=== PATIENT | male | born 1960 | race Caucasian/White ===

== ENCOUNTER 2018-02-07 06:58 | Day surgery (SDC) | payer MEDICARE, MEDICAID ==
[~2018-02-07] VITALS: Ht 193 cm; Wt 104.5 kg
[~2018-02-07 06:58] MED LIST: DILT120C88 PO; GLIM1TAB46 PO; LOVA40TA76 PO; METF500T7 PO; OLME1TAB22 PO; TRIA1CAP PO
[2018-02-07 07:11] VITALS: BP 158/88
[2018-02-07] MEDS ORDERED: TRIA1CAP2 PO (07:31)
[2018-02-07] MEDS ORDERED: AMLO5TAB PO (07:32)
[2018-02-07] MEDS ORDERED: LISI10TA4 PO (07:32)
[2018-02-07] MEDS ORDERED: GABA-532 PO (07:33)
[2018-02-07] MEDS ORDERED: VITAMIN D IM (07:35)
[2018-02-07] MEDS ORDERED: DILT120C51 PO (07:35)
[2018-02-07] MEDS ORDERED: ASPI81TA46 PO (07:36)
[2018-02-07] MEDS ORDERED: fentaNYL/PF 50MCG/1 ML 2ML syringe ONE (07:36)
[2018-02-07] MEDS ORDERED: MIDAZolam 5mg/5ml vial ONE (07:37)
[2018-02-07 08:52] VITALS: BP 143/72
[2018-02-07 09:02] VITALS: BP 141/74
[2018-02-07 09:12] VITALS: BP 144/70
== END 2018-02-07 09:35 | disposition home or self-care (01) ==
LOC: GI LAB 06:58
PROVIDERS: ATTEND Internal Medicine Gastroenterology
DX: Z09 Encounter for follow-up examination after completed treatment for conditions other than malignant neoplasm (principal); D12.5 Benign neoplasm of sigmoid colon; K57.30 Diverticulosis of large intestine without perforation or abscess without bleeding; K64.8 Other hemorrhoids; E78.5 Hyperlipidemia, unspecified; I12.9 Hypertensive chronic kidney disease with stage 1 through stage 4 chronic kidney disease, or unspecified chronic kidney disease; E11.22 Type 2 diabetes mellitus with diabetic chronic kidney disease; N18.3 Chronic kidney disease, stage 3 (moderate); Z86.010 Personal history of colon polyps; Z79.82 Long term (current) use of aspirin; Z79.84 Long term (current) use of oral hypoglycemic drugs; Z79.891 Long term (current) use of opiate analgesic; Z91.018 Allergy to other foods; Z86.73 Personal history of transient ischemic attack (TIA), and cerebral infarction without residual deficits; Z98.52 Vasectomy status; Z98.890 Other specified postprocedural states; Z79.899 Other long term (current) drug therapy
CPT/HCPCS: 45380; G0500; J2250; J3010; J7030; A4620

== ENCOUNTER 2020-01-28 21:24 | Inpatient (IN) | payer MEDICARE, MEDICAID ==
[~2020-01-28] VITALS: Ht 188 cm; Wt 97.0 kg
[~2020-01-28 21:24] MED LIST changes: +AMA1T PO; +AMLO5TAB PO; +ASPI81TA44 PO; +DILT120C51 PO; -DILT120C88 PO; +GABA-532 PO; -GLIM1TAB46 PO; +LISI10TA4 PO; +METF-900 PO; -METF500T7 PO; -OLME1TAB22 PO; -TRIA1CAP PO; +TRIA1CAP2 PO; +VITAMIN D IM
[2020-01-28 22:45] LABS: BASOPHILS # (AUTO) 0.1 X10'3 (0-0.2); BASOPHILS % (AUTO) 1.1 % (0-1); EOSINOPHILS # (AUTO) 0.2 X10'3 (0-0.9); EOSINOPHILS % (AUTO) 2.3 % (0-6); HEMOGLOBIN 12.1 g/dl (14.0-17.9); LYMPHOCYTES # (AUTO) 2.1 X10'3 (1.1-4.8); LYMPHOCYTES % (AUTO) 19.5 % (21-51); MEAN CORPUSCULAR HEMOGLOBIN 31.4 PG (27.0-31.0); MEAN CORPUSCULAR HGB CONC 33.7 g/dL (33.0-36.5); MEAN CORPUSCULAR VOLUME 93.2 FL (78-98); MEAN PLATELET VOLUME 7.4 FL (7.4-10.4); MONOCYTES # (AUTO) 1.1 X10'3 (0-0.9); MONOCYTES % (AUTO) 10.3 % (2-12); NEUTROPHILS # (AUTO) 7.1 X10'3 (1.8-7.7); NEUTROPHILS % (AUTO) 66.8 % (42-75); PLATELET COUNT 305 X10'3 (140-440); RED BLOOD COUNT 3.86 X10'6 (4.70-6.10); RED CELL DISTRIBUTION WIDTH 12.9 % (11.5-14.5); WHITE BLOOD COUNT 10.7 X10'3 (4.5-11.0)
[2020-01-28 22:52] LABS: PARTIAL THROMBOPLASTIN TIME 26 SECONDS (22-32)
[2020-01-28 22:54] LABS: CLARITY,URINE CLEAR (Clear); COLOR,URINE YELLOW (Yellow); GLUCOSE, URINE NEGATIVE (Neg); KETONES,URINE NEGATIVE (Neg); LEUKOCYTE ESTERASE ,URINE NEGATIVE (Neg); NITRITES, URINE NEGATIVE (Neg); OCCULT BLOOD,URINE TRACE-INTACT (Neg); PH,URINE 5.5 (4.8-8.0); PROTEIN,URINE 30 mg/dl (Neg); UROBILINOGEN,URINE 0.2 E.U/dL (0.2-1.0)
[2020-01-28 22:58] LABS: ALANINE AMINOTRANSFERASE 13 U/L (12-78); ALBUMIN 3.6 G/DL (3.4-5.0); ALKALINE PHOSPHATASE 92 IU/L (46-116); ANION GAP 10 (8-16); ASPARTATE AMINO TRANSFERASE 17 U/L (10-37); BILIRUBIN,TOTAL 0.5 MG/DL (0.1-1.0); BLOOD UREA NITROGEN 40 MG/DL (7-18); BUN/CREATININE RATIO 15.7 (5.4-32.0); CHLORIDE 102 MMOL/L (99-107); CREATININE 2.54 MG/DL (0.60-1.10); ETHANOL < 0.010 GM/DL (0.0-0.010); GLUCOSE 118 MG/DL (70-104); POTASSIUM 3.1 MMOL/L (3.5-5.1); SODIUM 139 MMOL/L (135-145); TOTAL CARBON DIOXIDE 27.5 MMOL/L (24-32); TOTAL PROTEIN 7.2 G/DL (6.4-8.2); eGFR 26 ML/MIN
[2020-01-28 23:00] LABS: UA COLLECTION TYPE URINAL
[2020-01-28 23:01] LABS: BACTERIA,URINE NONE SEEN /HPF (Neg); RBC,URINE 0-2 /HPF (0-2); SQUAMOUS EPITHELIAL CELL,UR FEW /LPF (FEW); WBC,URINE NONE SEEN /HPF (0-4)
[2020-01-28] MEDS ORDERED: normal saline 1000ML IV soln IVB ONE (23:15)
[2020-01-28 23:25] LABS: URINE AMPHETAMINE SCREEN NEGATIVE (Neg); URINE BARBITUATE SCREEN NEGATIVE (Neg); URINE BENZODIAZEPINES SCREEN NEGATIVE (Neg); URINE CANNABINOID SCREEN NEGATIVE (Neg); URINE COCAINE SCREEN NEGATIVE (Neg); URINE METHADONE SCREEN NEGATIVE (Neg); URINE OPIATE SCREEN NEGATIVE (Neg); URINE PHENCYCLIDINE SCREEN NEGATIVE (Neg)
[2020-01-28] MEDS ORDERED: potassium Cl 20 mEq SR tablet PO ONE (23:40)
[2020-01-29] MEDS ORDERED: MESSAGE TO PHARMACY PO ONE (01:25)
[2020-01-29] MEDS ORDERED: potassium Cl 20 mEq SR tablet PO PRN (01:25)
[2020-01-29] MEDS ORDERED: potassium CL 10mEq/100ml bag 100 ML IV PRN ×2 (01:25)
[2020-01-29] MEDS ORDERED: magnesium hydroxide 30ml (MOM) UD suspension PO PRN (01:25)
[2020-01-29] MEDS ORDERED: glucagon, human recombinant 1mg kit SUBCUT PRN (01:25)
[2020-01-29] MEDS ORDERED: dextrose ORAL solution 15 GM/59 ML bottle PO PRN ×2 (01:25)
[2020-01-29] MEDS ORDERED: mag hydrox/Alum hydrox/simeth 30ml oral suspension PO PRN (01:25)
[2020-01-29] MEDS ORDERED: insulin Lispro (HumaLOG) vial - multi-dose SQ SCH (01:25)
[2020-01-29] MEDS ORDERED: acetaminophen 325mg tablet PO PRN (01:25)
[2020-01-29] MEDS ORDERED: ondansetron/PF 4mg/2ml inj IV PRN (01:25)
[2020-01-29] MEDS ORDERED: dextrose 50%-water 50ml dispensing syringe IV PRN ×2 (01:25)
[2020-01-29] MEDS: normal saline 1000ml 1,000 ML IV SCH ×3 (01:50→21:21)
--- NOTE | 2020-01-29 02:58 | NUR ---
Patient in room ED 9. I have received report from RAVINDER Bhatt RN, and had the opportunity to ask questions and assume patient care. Pt. to room 347B Addendum: 01/29/20 at 0259 by Italia Odell RN Amended: Links added.
[2020-01-29 03:38] VITALS: BP 151/81
--- NOTE | 2020-01-29 03:50 | NUR ---
pt arrived to floor via gurney. pt. confused. unable to answer questions appropriately. Pt. laughs when asked questions. will continue to monitor.
[2020-01-29] MEDS ORDERED: cyanocobalamin 1,000 mcg/ml inj IM ONE (06:00)
--- NOTE | 2020-01-29 06:13 | NUR ---
Problems reprioritized. Patient report given, questions answered & plan of care reviewed with BARNEY Miguel. Addendum: 01/29/20 at 0613 by Italia Odell RN Amended: Links added.
--- NOTE | 2020-01-29 06:15 | NUR ---
Patient in room [facility] 347. I have received report from Italia CORLEY and had the opportunity to ask questions and assume patient care.
--- NOTE | 2020-01-29 06:59 | NUR ---
Blood sugar was 46mg/dl when checked, the glucometer machine showing V number that is correct and has little box that has message of "downtime override". Patient alert, confused, irritable, and stated being hungry. Blood sugar recheck was 42 mg/dl. I called the lab about the downtime override message from the glucometer and that patient is hypoglycemic - I was told that the message of downtime override will not affect the result of capillary glucose. I was advised to order a blood draw for serum glucose and to initiate treatment for hypoglycemia. Patient stated that he could not have orange juice as he is allergic to it. Patient yelled at me and said "if you give me orange juice you can kill me!" I was going to give patient glucose shot per hypoglycemia protocol but the label has image of orange. Due to patient allergic reaction to citrus/orange juice in the past as patient reported, I administered [id number] slow IV push to patient for the severe hypoglycemia. Kitchen/dietary department notified via fax that patient cannot have orange or orange juice in his tray due to allergy.
[2020-01-29 07:00] VITALS: BP 159/84
--- NOTE | 2020-01-29 07:49 | NUR ---
Repeat blood sugar was 186 mg/dl.
[2020-01-29] MEDS: heparin, porcine 5000 units/ml vial SQ SCH ×2 (08:00→20:00)
[2020-01-29] MEDS: K and/or MAG REPLACEMENT MC SCH ×2 (08:00→20:00)
[2020-01-29 08:03] VITALS: BP 163/78
--- NOTE | 2020-01-29 08:29 | NUR ---
Dr. Brown notified via page about hypoglycemia episode and the intervention done
[2020-01-29] MEDS: lisinopril 10 MG tablet PO SCH (08:37)
[2020-01-29] MEDS: aspirin 81mg tablet.DR PO SCH (08:38)
[2020-01-29] MEDS: amLODIPine 5mg tablet PO SCH (08:39)
[2020-01-29] MEDS: atorvastatin 10mg tablet PO SCH (08:39)
[2020-01-29] MEDS: potassium Cl 20 mEq SR tablet PO PRN (08:39)
[2020-01-29 08:58] LABS: GLUCOSE 218 MG/DL (70-104)
--- NOTE | 2020-01-29 09:59 | NUR ---
Patient refused Heparin and Vitamin B12 injection. Patient states "I don't want any shot!" Addendum: 01/29/20 at 1054 by Myriam Marrero RN Dr. Brown notified about patient refusal of Heparin and Vit B12 injection
[2020-01-29 10:48] LABS: BASOPHILS # (AUTO) 0.1 X10'3 (0-0.2); BASOPHILS % (AUTO) 1.4 % (0-1); EOSINOPHILS # (AUTO) 0.4 X10'3 (0-0.9); EOSINOPHILS % (AUTO) 4.1 % (0-6); HEMOGLOBIN 11.2 g/dl (14.0-17.9); LYMPHOCYTES # (AUTO) 2.9 X10'3 (1.1-4.8); LYMPHOCYTES % (AUTO) 32.4 % (21-51); MEAN CORPUSCULAR HEMOGLOBIN 30.7 PG (27.0-31.0); MEAN CORPUSCULAR HGB CONC 33.1 g/dL (33.0-36.5); MEAN CORPUSCULAR VOLUME 92.6 FL (78-98); MEAN PLATELET VOLUME 7.9 FL (7.4-10.4); MONOCYTES # (AUTO) 1.1 X10'3 (0-0.9); NEUTROPHILS # (AUTO) 4.5 X10'3 (1.8-7.7); NEUTROPHILS % (AUTO) 50.1 % (42-75); PLATELET COUNT 285 X10'3 (140-440); RED BLOOD COUNT 3.67 X10'6 (4.70-6.10); RED CELL DISTRIBUTION WIDTH 12.9 % (11.5-14.5); WHITE BLOOD COUNT 8.9 X10'3 (4.5-11.0)
[2020-01-29 11:00] VITALS: BP 151/79
[2020-01-29 11:03] LABS: ALANINE AMINOTRANSFERASE 12 U/L (12-78); ALBUMIN 3.3 G/DL (3.4-5.0); ALBUMIN/GLOBULIN RATIO 0.9 (1.1-1.5); ALKALINE PHOSPHATASE 75 IU/L (46-116); ANION GAP 13 (8-16); ASPARTATE AMINO TRANSFERASE 19 U/L (10-37); BILIRUBIN,TOTAL 0.7 MG/DL (0.1-1.0); BLOOD UREA NITROGEN 31 MG/DL (7-18); BUN/CREATININE RATIO 14.2 (5.4-32.0); CALCIUM 8.3 MG/DL (8.5-10.1); CHLORIDE 108 MMOL/L (99-107); CREATININE 2.18 MG/DL (0.60-1.10); POTASSIUM 3.5 MMOL/L (3.5-5.1); SODIUM 144 MMOL/L (135-145); TOTAL CARBON DIOXIDE 23.2 MMOL/L (24-32); TOTAL PROTEIN 6.8 G/DL (6.4-8.2); eGFR 31 ML/MIN
[2020-01-29 12:10] LABS: ALANINE AMINOTRANSFERASE 13 U/L (12-78); ALBUMIN/GLOBULIN RATIO 0.9 (1.1-1.5); ALKALINE PHOSPHATASE 72 IU/L (46-116); ANION GAP 8 (8-16); ASPARTATE AMINO TRANSFERASE 13 U/L (10-37); BILIRUBIN,TOTAL 0.4 MG/DL (0.1-1.0); BLOOD UREA NITROGEN 32 MG/DL (7-18); BUN/CREATININE RATIO 15.9 (5.4-32.0); CALCIUM 8.1 MG/DL (8.5-10.1); CHLORIDE 109 MMOL/L (99-107); CREATININE 2.01 MG/DL (0.60-1.10); GLUCOSE 238 MG/DL (70-104); POTASSIUM 3.7 MMOL/L (3.5-5.1); SODIUM 143 MMOL/L (135-145); TOTAL CARBON DIOXIDE 26.1 MMOL/L (24-32); TOTAL PROTEIN 6.2 G/DL (6.4-8.2); eGFR 34 ML/MIN
[2020-01-29 17:04] VITALS: BP 165/85
--- NOTE | 2020-01-29 18:19 | NUR ---
Problems reprioritized. Patient report given, questions answered & plan of care reviewed with Myriam CORLEY.
--- NOTE | 2020-01-29 18:50 | NUR ---
Problems reprioritized. Patient report given, questions answered & plan of care reviewed with Italia CORLEY.
--- NOTE | 2020-01-29 18:51 | NUR ---
Attempt to give patient 3 units of humalog to correct his blood sugar of 200. Patient refused. Nurse notified.
[2020-01-29 20:00] VITALS: BP 165/85
[2020-01-29] MEDS: metFORMIN 500mg tablet PO SCH (20:34)
[2020-01-29] MEDS ORDERED: insulin glargine (Lantus) pen - multi-dose SQ SCH (21:00)
--- NOTE | 2020-01-29 22:40 | NUR ---
Patient in room [facility] 347. I have received report from BARNEY Miguel and had the opportunity to ask questions and assume patient care. Addendum: 01/29/20 at 2241 by Italia Odell RN Amended: Links added.
[2020-01-30 00:27] VITALS: BP 150/100
--- NOTE | 2020-01-30 06:14 | NUR ---
Patient in room [facility] 347. I have received report from Italia CORLEY and had the opportunity to ask questions and assume patient care.
[2020-01-30 06:21] LABS: BASOPHILS # (AUTO) 0.1 X10'3 (0-0.2); BASOPHILS % (AUTO) 1.3 % (0-1); EOSINOPHILS # (AUTO) 0.4 X10'3 (0-0.9); EOSINOPHILS % (AUTO) 4.4 % (0-6); HEMATOCRIT 33.3 % (42.0-52.0); LYMPHOCYTES % (AUTO) 22.8 % (21-51); MEAN CORPUSCULAR HEMOGLOBIN 30.6 PG (27.0-31.0); MEAN CORPUSCULAR VOLUME 92.5 FL (78-98); MEAN PLATELET VOLUME 7.5 FL (7.4-10.4); MONOCYTES # (AUTO) 1.1 X10'3 (0-0.9); MONOCYTES % (AUTO) 12.4 % (2-12); NEUTROPHILS # (AUTO) 5.3 X10'3 (1.8-7.7); NEUTROPHILS % (AUTO) 59.1 % (42-75); PLATELET COUNT 253 X10'3 (140-440); RED CELL DISTRIBUTION WIDTH 12.7 % (11.5-14.5); WHITE BLOOD COUNT 8.9 X10'3 (4.5-11.0)
--- NOTE | 2020-01-30 06:21 | NUR ---
Problems reprioritized. Patient report given, questions answered & plan of care reviewed with BARNEY Miguel. Addendum: 01/30/20 at 0621 by Italia Odell RN Amended: Links added.
[2020-01-30 06:43] LABS: ALANINE AMINOTRANSFERASE 10 U/L (12-78); ALBUMIN 3.2 G/DL (3.4-5.0); ALKALINE PHOSPHATASE 76 IU/L (46-116); ANION GAP 9 (8-16); ASPARTATE AMINO TRANSFERASE 11 U/L (10-37); BILIRUBIN,TOTAL 0.7 MG/DL (0.1-1.0); BLOOD UREA NITROGEN 26 MG/DL (7-18); BUN/CREATININE RATIO 14.8 (5.4-32.0); CALCIUM 8.5 MG/DL (8.5-10.1); CHLORIDE 110 MMOL/L (99-107); CREATININE 1.76 MG/DL (0.60-1.10); GLUCOSE 157 MG/DL (70-104); POTASSIUM 3.3 MMOL/L (3.5-5.1); SODIUM 144 MMOL/L (135-145); TOTAL CARBON DIOXIDE 25.4 MMOL/L (24-32); TOTAL PROTEIN 6.4 G/DL (6.4-8.2); eGFR 39 ML/MIN
[2020-01-30 07:00] VITALS: BP 118/74
--- NOTE | 2020-01-30 07:11 | NUR ---
Inserted a new peripheral IV catheter on the left forearm g20 x1 attempt. Instructed patient not to pull out his IV again. Patient states "I promise I won't do it again, I'll be more careful!"
[2020-01-30] MEDS: normal saline 1000ml 1,000 ML IV SCH (07:21)
[2020-01-30] MEDS: heparin, porcine 5000 units/ml vial SQ SCH (08:00)
[2020-01-30] MEDS: K and/or MAG REPLACEMENT MC SCH (08:00)
[2020-01-30] MEDS: atorvastatin 10mg tablet PO SCH (08:18)
[2020-01-30] MEDS: amLODIPine 5mg tablet PO SCH (08:18)
[2020-01-30] MEDS: aspirin 81mg tablet.DR PO SCH (08:18)
[2020-01-30] MEDS: lisinopril 10 MG tablet PO SCH (08:19)
[2020-01-30] MEDS: metFORMIN 500mg tablet PO SCH (08:19)
[2020-01-30] MEDS: potassium Cl 20 mEq SR tablet PO PRN (09:43)
[2020-01-30 11:00] VITALS: BP_SYST 141; BP_SYST 161; BP_DIAS 82
--- NOTE | 2020-01-30 11:27 | NUR ---
Spoke to Charley Ann RN about the patient needing a ride to go back home today. She said they will take care of patient's ride. Hyacinth, [employer] also notified about the discharge order, Hyacinth said she will get a home health service for this patient.
[2020-01-30 11:47] LABS: ALBUMIN 3.1 G/DL (3.4-5.0); ANION GAP 6 (8-16); BLOOD UREA NITROGEN 25 MG/DL (7-18); BUN/CREATININE RATIO 14.8 (5.4-32.0); CALCIUM 8.3 MG/DL (8.5-10.1); CHLORIDE 109 MMOL/L (99-107); CREATININE 1.69 MG/DL (0.60-1.10); GLUCOSE 197 MG/DL (70-104); POTASSIUM 3.4 MMOL/L (3.5-5.1); SODIUM 144 MMOL/L (135-145); TOTAL CARBON DIOXIDE 28.7 MMOL/L (24-32); eGFR 41 ML/MIN
--- NOTE | 2020-01-30 13:00 | NUR ---
Discharged patient home, discharge instructions given to patient -patient verbalized understanding of all instructions made. Peripheral IV catheter removed, tip intact. Belongings sent with the patient.
== END 2020-01-30 13:06 | disposition home health service (06) | DRG 71 ==
LOC: ER 21:24 → ED HOLD 01-29 01:29 → SUR 3N 01-29 03:23
PROVIDERS: ADMIT Internal Medicine; ATTEND Family Medicine
DX: G93.41 Metabolic encephalopathy (principal); N17.9 Acute kidney failure, unspecified; E11.22 Type 2 diabetes mellitus with diabetic chronic kidney disease; I12.9 Hypertensive chronic kidney disease with stage 1 through stage 4 chronic kidney disease, or unspecified chronic kidney disease; N18.9 Chronic kidney disease, unspecified; Z86.73 Personal history of transient ischemic attack (TIA), and cerebral infarction without residual deficits; E11.40 Type 2 diabetes mellitus with diabetic neuropathy, unspecified; F03.90 Unspecified dementia, unspecified severity, without behavioral disturbance, psychotic disturbance, mood disturbance, and anxiety
CPT/HCPCS: 36415; 70450; 71045; 80048; 80053; 80305; 80320; 81001; 82607; 82948; 83036; 84132; 85025; 85610; 85730; 87081; 96360; 99285; G0378; J1815; J7030